=== PATIENT | female | born 1935 | race Caucasian/White ===

== ENCOUNTER 2016-09-16 18:43 | Emergency (ER) | payer MEDICARE ==
[2016-09-16 20:45] VITALS: BP 166/74
--- NOTE | 2016-09-16 21:23 | UC ---
General HPI - HPI Summary HPI Summary: complaint of a sore on her buttocks noticed it approx 1 week ago and was pionful then it opened up and has draingae coming out of it- yellowish with blood on it denies fever and chills BS conttrolled recently last checks 100-[address] Lauren in [facility] has appt Sunday with her - History of Current Complaint Chief Complaint: UCWounds Stated Complaint: SORE ON BACK SIDE Time Seen by Provider: 09/16/16 21:14 Hx Obtained From: Patient - Allergy/Home Medications Allergies/Adverse Reactions: Allergies Allergy/AdvReac Type Severity Reaction Status Date / Time Codeine Allergy Severe GI Upset Verified 09/16/16 20:44 Home Medications: Home Medications Acetaminophen [Mapap] 500 mg PO PRN 09/16/16 [History] Atorvastatin* [Lipitor 20 MG*] 20 mg PO DAILY 09/16/16 [History Confirmed ] Cilostazol TAB* [Pletal TAB*] 50 mg PO BID 09/16/16 [History Confirmed 09/16/16] Furosemide TAB* [Lasix TAB*] 40 mg PO DAILY 09/16/16 [History Confirmed 09/16/16 ] Gabapentin CAP(*) [Neurontin 100 mg CAP(*)] 100 mg PO TID 09/16/16 [History Confirmed 09/16/16] Insulin GLARGINE(*) [Lantus(*)] 35 units SUBCUT QPM 09/16/16 [History Confirmed 09/16/16] Losartan TAB* [Cozaar TAB*] 50 mg PO DAILY 09/16/16 [History Confirmed 09/16/16] Magnesium 400 mg PO BID 09/16/16 [History Confirmed 09/16/16] Oxybutynin TAB* [Ditropan TAB*] 10 mg PO QAM 09/16/16 [History Confirmed ] PARoxetine HCL TAB* [Paxil TAB*] 20 mg PO DAILY 09/16/16 [History Confirmed ] amLODIPine TAB* [Norvasc 5 mg TAB*] 10 mg PO DAILY 09/16/16 [History Confirmed 09/16/16] PMH/Surg Hx/FS Hx/Imm Hx Endocrine History: Diabetes Cardiovascular History: Hypertension - Surgical History Surgical History: Yes Surgery Procedure, Year, and Place: HEART VALVE REPLACEMENT, PACEMAKER, RLE AMPUTATION, LOWER EXT ANGIOGRAM - Family History Known Family History: Positive: Diabetes - mother Negative: Cardiac Disease, Hypertension - Social History Occupation: Disabled Lives: With Family Alcohol Use: None Substance Use Type: None Smoking Status (MU): Never Smoked Tobacco Review of Systems Constitutional: Negative Skin: Other - decubitus ulcer Eyes: Negative ENT: Negative Respiratory: Negative Cardiovascular: Negative Gastrointestinal: Negative Genitourinary: Negative Motor: Negative Neurovascular: Negative Musculoskeletal: Negative Neurological: Negative Psychological: Negative All Other Systems Reviewed And Are Negative: Yes Physical Exam Triage Information Reviewed: Yes Appearance: No Pain Distress, Well-Nourished Vital Signs: Initial Vital Signs Temp 97.8 F 09/16/16 20:38 Pulse 87 09/16/16 20:38 Resp 18 09/16/16 20:38 BP 166/74 09/16/16 20:38 Pulse Ox 99 09/16/16 20:38 Vital Signs Reviewed: Yes Eyes: Positive: Conjunctiva Clear ENT: Positive: Pharynx normal, TMs normal Neck: Positive: No Lymphadenopathy Respiratory: Positive: Lungs clear, Normal breath sounds, No respiratory distress Cardiovascular: Positive: RRR, No Murmur, Pulses Normal Abdomen Description: Positive: Nontender, Soft Bowel Sounds: Positive: Present Musculoskeletal: Positive: Other: - RBKA Neurological: Positive: Alert Psychological Exam: Normal Skin: Positive: Other - buttocks L side with 3x3cm area of erythea surrounding tage 2 ulder 1cm x1cm right side of buttocks- 3x3cm area of erythema Procedures - Procedure Summary Procedure Summary: buttckes cleased and mediplax dressing applied to buttocks Course/Dx - Course Course Of Treatment: exam completed- afebrile. decubitus ulcers -pt has followup with PCP IN 2 days. will start antibiotic and keep area covered until followup appt - Differential Dx - Multi-Symptom Provider Diagnoses: decubitus ulcer Discharge - Discharge Plan Condition: Stable Disposition: HOME Prescriptions: Sulfamethox/Trimethoprim DS* [Bactrim DS 800/160 TAB*] 1 tab PO BID #14 tab Patient Education Materials: How to Prevent Pressure Ulcers (ED), Cellulitis ( ED) Referrals: Najma Lauren MD [Primary Care Provider] - Additional Instructions: Please start antibiotic as directed keep your bottom clean and dry change position in chair every 2 hours please followup wit your primary care provider in 2 days or sooner if you get a fever Increase fluids and rest Take acetaminophen or ibuprofen for fever or pain Please review your discharge instructions. If your symptoms do not improve please call your primary care provider or return to urgent care.
[2016-09-16] MEDS ORDERED: Sulfamethox/Trimethoprim DS 800/160* TAB PO ONE (21:41)
== END 2016-09-16 21:52 | disposition home or self-care (01) ==
LOC: UCEAST 18:43
DX: L89.329 Pressure ulcer of left buttock, unspecified stage (principal); E11.9 Type 2 diabetes mellitus without complications; Z79.4 Long term (current) use of insulin; I10 Essential (primary) hypertension; Z95.2 Presence of prosthetic heart valve; Z95.0 Presence of cardiac pacemaker; Z89.612 Acquired absence of left leg above knee
CPT/HCPCS: 99212; A9270-GY; G0463